=== PATIENT | male | born 1960 | race Caucasian/White ===

== ENCOUNTER 2020-04-24 16:39 | Emergency (ER) | payer OTHER ==
[2020-04-24] MEDS ORDERED: Iopamidol 755 Mg/ML 100 ML Bottle IV ONE (16:49)
[2020-04-24] MEDS ORDERED: Enoxaparin 150 MG/1 ML Syringe SUBCUT STA (18:08)
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
[2020-04-24] MEDS ORDERED: Enoxaparin 100 MG/1 ML Syringe ONE (18:21)
[2020-04-24] MEDS ORDERED: Enoxaparin 60 MG/0.6 ML Syringe ONE (18:21)
[2020-04-24] MEDS ORDERED: Enoxaparin 60 MG/0.6 ML Syringe SUBCUT ONE (18:29)
[2020-04-24] MEDS ORDERED: Enoxaparin 100 MG/1 ML Syringe SUBCUT ONE (18:29)
[2020-04-24 20:11] VITALS: BP 141/82; PULSE 91
== END 2020-04-24 18:39 | disposition home or self-care (01) ==
LOC: FB.ED 16:39
DX: R07.89 Other chest pain (principal); R79.1 Abnormal coagulation profile; K21.9 Gastro-esophageal reflux disease without esophagitis; F32.9 Major depressive disorder, single episode, unspecified; Z87.891 Personal history of nicotine dependence; Z79.899 Other long term (current) drug therapy
CPT/HCPCS: 36415; 84484; 96372; 99284; J1650